=== PATIENT | female | born 1960 | race Caucasian/White ===

== ENCOUNTER 2019-06-18 05:56 | Day surgery (SDC) | payer MEDICARE, MEDICAID ==
[~2019-06-18] VITALS: Ht 152.4 cm; Wt 65.8 kg
[2019-06-18] MEDS ORDERED: normal saline 1000ml 1,000 ML IV SCH (06:40)
[2019-06-18 06:52] VITALS: BP 98/58
[2019-06-18] MEDS ORDERED: fentaNYL/PF 50MCG/1 ML 2ML syringe IV PRN (08:15)
[2019-06-18] MEDS ORDERED: LIDOcaine 1%/PF 5ML 10 MG/ML VIAL SQ ONE (08:15)
[2019-06-18] MEDS ORDERED: heparin sodium, porcine/PF 100unit/ml 5ML syringe ICATH ONE (08:15)
[2019-06-18] MEDS ORDERED: midazolam 2 mg/2 ml injection IV PRN (08:15)
[2019-06-18] MEDS ORDERED: ASPI-1265 PO (08:21)
[2019-06-18] MEDS ORDERED: CLOP75TA15 PO (08:21)
[2019-06-18] MEDS ORDERED: ATOR40TA PO (08:21)
[2019-06-18] MEDS ORDERED: OMEP20CA11 PO (08:21)
[2019-06-18] MEDS ORDERED: LISI-600 PO (08:21)
[2019-06-18] MEDS ORDERED: DIAZ5TAB4 PO (08:21)
[2019-06-18] MEDS ORDERED: LORA10TA7 PO (08:21)
[2019-06-18] MEDS ORDERED: SPIR25TA PO (08:21)
[2019-06-18] MEDS ORDERED: CARV3.12 PO (08:21)
[2019-06-18] MEDS ORDERED: HYDR-4383 PO (08:21)
[2019-06-18] MEDS ORDERED: CHOL10002 PO (08:21)
[2019-06-18] MEDS ORDERED: OMEG1CAP PO (08:21)
[2019-06-18] MEDS ORDERED: heparin sodium, porcine/PF 100unit/ml 5ML syringe ONE (08:27)
[2019-06-18] MEDS ORDERED: LIDOcaine 1%/PF 5ML 10 MG/ML VIAL ONE ×2 (08:28)
[2019-06-18] MEDS ORDERED: fentaNYL/PF 50MCG/1 ML 2ML syringe ONE (08:28)
[2019-06-18] MEDS ORDERED: midazolam 2 mg/2 ml injection ONE (08:28)
[2019-06-18 09:35] VITALS: BP 114/76
[2019-06-18 09:45] VITALS: BP 106/69
[2019-06-18 10:00] VITALS: BP 102/70
[2019-06-18 10:15] VITALS: BP 104/58
== END 2019-06-18 10:40 | disposition home or self-care (01) ==
LOC: SSTAY O 05:56
PROVIDERS: ATTEND Radiology Vascular & Interventional Radiology
DX: C18.1 Malignant neoplasm of appendix (principal); I10 Essential (primary) hypertension; J44.9 Chronic obstructive pulmonary disease, unspecified; M19.90 Unspecified osteoarthritis, unspecified site; F32.9 Major depressive disorder, single episode, unspecified; F41.9 Anxiety disorder, unspecified; E78.00 Pure hypercholesterolemia, unspecified; I25.2 Old myocardial infarction; F10.20 Alcohol dependence, uncomplicated; Z98.51 Tubal ligation status; Z90.710 Acquired absence of both cervix and uterus; Z90.49 Acquired absence of other specified parts of digestive tract; Z90.722 Acquired absence of ovaries, bilateral; F17.200 Nicotine dependence, unspecified, uncomplicated
CPT/HCPCS: 36561; 76937; 77001; 99152; 99153; A6213; C1788; C1894; J1642; J2250; J3010; J7030